=== PATIENT | female | born 1950 | race Caucasian/White ===

== ENCOUNTER 2019-05-17 00:56 | Emergency (ER) | payer MEDICARE, SELFPAY ==
[2019-05-17 00:55] VITALS: BP 178/106; PULSE 100; RESP 15; TEMP 36.6; O2SAT 98
[2019-05-17 01:14] LABS: Basophils Percent Auto 0.2 % (0.2-1.2); Eosinophils Absolute Auto 0.1 K/mm3 (0-0.3); Eosinophils Percent Auto 0.6 % (0-4.4); Hematocrit 40.2 % (37.0-47.0); Hemoglobin 13.3 g/dL (12.0-15.0); Immature Granulocyte Absolute 0.03 K/mm3 (0.00-0.031); Immature Granulocyte Percent A 0.4 % (0-0.5); Lymphocytes Absolute Auto 2.35 K/mm3 (0.9-3.2); Lymphocytes Percent Auto 27.8 % (18.3-44.2); Mean Corpuscular HGB Conc 33.1 g/dl (32-36); Mean Corpuscular Hemoglobin 29.4 pg (26-34); Mean Corpuscular Volume 88.9 fl (80-100); Mean Platelet Volume 9.7 fl (7.4-10.4); Monocytes Absolute Auto 0.5 K/mm3 (0.1-0.6); Monocytes Percent Auto 5.5 % (2.6-8.5); Neutrophils Absolute Auto 5.5 K/mm3 (1.3-6.7); Neutrophils Percent Auto 65.5 % (45.5-73.1); Platelet Count Result 320 k/mm3 (150-375); Red Blood Count 4.52 M/mm3 (4.2-5.4); Red Cell Distribution Width 13.6 % (11.5-14.5); White Blood Count 8.4 K/mm3 (4.5-10.0)
--- NOTE | 2019-05-17 01:17 | ED.EPISTAXIS ---
HPI - Epistaxis General Chief complaint: Epistaxis Stated complaint: NOSEBLEED Time Seen by Provider: 05/17/19 00:59 Source: patient and RN notes reviewed Mode of arrival: EMS Limitations: no limitations History of Present Illness HPI Narrative: Pt is a 68 y/o female who presents to the ED via EMS with c/o epistaxis starting earlier this evening. She notes that her rt nostril suddenly began bleeding around 17:30 yesterday afternoon. Pt states that the bleeding resolved after approximately 10-15 minutes. She notes that her rt nostril again began bleeding around 23:45 this evening. Pt denies any recent head injuries or trauma. She notes that she isn't currently taking any blood thinners, and states that she has no Hx of previous similar episodes. Pt notes that her symptoms are currently resolved. MD complaint: epistaxis Location: right nostril Onset (ago): hour(s) (1) Duration: now resolved Associated symptoms: other (none) Treatment prior to arrival: nasal clamp Related Data Allergies Allergy/AdvReac Type Severity Reaction Status Date / Time No Known Allergies Allergy Verified 05/17/19 00:59 Review of Systems Review of Systems: All systems reviewed & are unremarkable except as noted in HPI and below ENT: Reports epistaxis Neurologic: Denies other (head injury) [facility] Past Medical History Medical History (Updated 05/17/19 @ 01:41 by Freedom Chance MD) Medical history unknown Surgical History Surgical History (Updated 05/17/19 @ 01:27 by Patel Foley) No significant past surgical history Social History Social History (Updated 05/17/19 @ 01:27 by Patel Foley) Smoking status: Never smoker Exam Const: General: cooperative, healthy appearing, comfortable, no acute distress, well developed, alert and awake; No confusion Orientation/consciousness: oriented to person, oriented to place, oriented to time, patient oriented x3 and No confusion Limitations: no limitations HENMT: Head: normal to inspection, normocephalic and atraumatic General nose exam: Normal septum present (no septal hematoma) and Other nasal findings present (dried blood in rt nostril; no active bleeding currently) Neck: Neck: normal visual inspection Resp: Effort & Inspection: normal respiratory effort, able to speak in complete sentences, no respiratory distress and not tachypneic Auscultation: clear to auscultation bilaterally, no crackles, no rales, no rhonchi and no wheezes Cardio: Rate: regular rate Rhythm: regular rhythm GI: Inspection: normal to inspection GI Palp: No abdominal tenderness, Yes Soft to palpation, No Tenderness to palpation present (GI), No Guarding due to palpation present (GI), No Rigid due to palpation and No Rebound tenderness present Auscultation: normal bowel sounds Skin: General skin exam: normal color, no rashes or lesions noted, elasticity normal and turgor normal Neuro: General: oriented to person, oriented to place, oriented to time, patient oriented x3, tone normal, moves all extremities, Normal light touch and pain sensation, no meningeal signs, no focal motor deficits, CN's II-XI intact bilaterally and No confusion Cranial nerves: Yes Equal, round and reactive pupils present Speech: No Abnormal speech present Sensory Exam: No Sensory deficit (Neuro) Extrem: General: normal to inspection, full ROM and capillary refill normal Psych: Appearance: grossly normal and well kempt Mental Status: mental status grossly normal Speech and movement: Normal speech and movement present Affect: normal affect Attitude: cooperative Thought process: Normal thought process present Thought content: Yes Normal thought content present Insight: Good insight present (Psych) Judgement: Good judgement present (Psych) Course Course Emergency Course: EPISTAXIS RESOLVED. HAS NO COMPLAINTS. Vital Signs Vital signs: Vital Signs Temperature 36.6 C 05/17/19 00:55 Pulse Rate 100 05/17/19 00:55 Respiratory Rate
[2019-05-17 01:24] LABS: Prothrombin Time 12.4 Seconds (11.1-14.7)
[2019-05-17 01:25] LABS: Partial Thromboplastin Time 30.2 SECONDS (22.3-36.8)
--- NOTE | 2019-05-17 01:42 | ED.EPISTAXIS ---
HPI - Epistaxis General Chief complaint: Epistaxis Stated complaint: NOSEBLEED Time Seen by Provider: 05/17/19 00:59 Source: patient and RN notes reviewed Mode of arrival: EMS Limitations: no limitations History of Present Illness complaint: epistaxis Location: right nostril Associated symptoms: other (none) Related Data Allergies Allergy/AdvReac Type Severity Reaction Status Date / Time No Known Allergies Allergy Verified 05/17/19 00:59 [facility] Past Medical History Medical History (Updated 05/17/19 @ 01:41 by Freedom Chance MD) Medical history unknown Surgical History Surgical History (Updated 05/17/19 @ 01:27 by Patel Foley) No significant past surgical history Social History Social History (Updated 05/17/19 @ 01:27 by Patel Foley) Smoking status: Never smoker Course Vital Signs Vital signs: Vital Signs Temperature 36.6 C 05/17/19 00:55 Pulse Rate 100 05/17/19 00:55 Respiratory Rate 15 05/17/19 00:55 Blood Pressure 178/106 H 05/17/19 00:55 Pulse Oximetry 98 05/17/19 00:55 Temperature 36.6 C 05/17/19 00:55 Pulse Rate 100 05/17/19 00:55 Respiratory Rate 15 05/17/19 00:55 Blood Pressure 178/106 H 05/17/19 00:55 Pulse Oximetry 98 05/17/19 00:55 MDM - Epistaxis Lab Data Result diagrams: 05/17/19 01:09 Labs: Lab Results 05/17/19 05/17/19 Range/Units 01:09 01:09 WBC 8.4 (4.5-10.0) K/mm3 RBC 4.52 (4.2-5.4) M/mm3 Hgb 13.3 (12.0-15.0) g/dL Hct 40.2 (37.0-47.0) % MCV 88.9 (80-100) fl MCH 29.4 (26-34) pg MCHC 33.1 (32-36) g/dl RDW 13.6 (11.5-14.5) % Plt Count 320 (150-375) k/mm3 MPV 9.7 (7.4-10.4) fl Immature Gran % (Auto) 0.4 (0-0.5) % Neut % (Auto) 65.5 (45.5-73.1) % Lymph % (Auto) 27.8 (18.3-44.2) % Humphreys % (Auto) 5.5 (2.6-8.5) % Eos % (Auto) 0.6 (0-4.4) % Baso % (Auto) 0.2 (0.2-1.2) % Lymph # (Auto) 2.35 (0.9-3.2) K/mm3 Humphreys # (Auto) 0.5 (0.1-0.6) K/mm3 Eos # (Auto) 0.1 (0-0.3) K/mm3 Baso # (Auto) 0.0 (0.0-0.1) K/mm3 Abs Immat Gran (auto) 0.03 (0.00-0.031) K/mm3 Absolute Neuts (auto) 5.5 (1.3-6.7) K/mm3 Absolute Nucleated RBC 0.0 (0.0-0.012) K/mm3 Nucleated RBC % 0.0 (0.0-0.2) % PT 12.4 (11.1-14.7) Seconds INR 1.0 APTT 30.2 (22.3-36.8) SECONDS Discharge Plan Discharge Clinical Impression: Epistaxis Patient Disposition: Home, Self-Care Condition: Improved Instructions: Antibiotic Form, Nosebleed (ED) Additional Instructions: FOLLOW UP WITH YOUR FAMILY DOCTOR IN 1 DAY. Follow-up/Referrals: Abraham Bowens MD [Physician] - 05/18/19 UNKNOWN,DOCTOR [Primary Care Provider] - Time of Disposition: 01:41
[2019-05-17] MEDS: OXYMETAZOLINE HCL 0.05% NAS 15 ML BTL (*BKC) 1 SPRAY NASAL (01:58)
[2019-05-17 02:17] VITALS: BP 161/88; PULSE 100; RESP 15; TEMP 36.7; O2SAT 98
== END 2019-05-17 02:46 | disposition home or self-care (01) ==
PROVIDERS: Emergency Provider Emergency Medicine
DX: R04.0 Epistaxis (principal)
CPT/HCPCS: 30901; 36415; 85025; 85610; 85730; 99283; A9270

== ENCOUNTER 2019-05-17 09:07 | Emergency (ER) | payer MEDICARE, SELFPAY ==
[2019-05-17 09:08] VITALS: BP 162/91; PULSE 115; RESP 20; TEMP 36.9; O2SAT 100
--- NOTE | 2019-05-17 09:24 | ED.EPISTAXIS ---
HPI - Epistaxis General Chief complaint: Epistaxis Stated complaint: NOSEBLEED Time Seen by Provider: 05/17/19 09:10 Source: patient and RN notes reviewed Mode of arrival: EMS Limitations: no limitations History of Present Illness HPI Narrative: A 68 y/o female presents to the ED via EMS with epistaxis since 1729 last night. She states that she was seen in the ER last night and had a rhinorocket placed in her rt nare around 3 AM. She reports that she went home and slept on the recliner, but around 6 AM this morning she woke up with epistaxis to her lt nare. She also reports that the blood started coming from her eyes. She denies any fevers, chills, CP, SOB, N/V/D, ABD pain, or dizziness. MD complaint: epistaxis Location: left nostril Onset (ago): hour(s) (15.5) Duration: constant Associated symptoms: other (blood coming out of her eyes) Treatment prior to arrival: other (rhinorocket) Related Data Allergies Allergy/AdvReac Type Severity Reaction Status Date / Time No Known Allergies Allergy Verified 05/17/19 00:59 Review of Systems Review of Systems: All systems reviewed & are unremarkable except as noted in HPI and below Constitutional: Constitutional: Denies chills and Denies fever(s) Eyes: Eyes: Reports other (blood coming out of her eyes) ENT: Reports epistaxis (rt) Cardiovascular: Cardiovascular: Denies chest pain Respiratory: Respiratory: Denies dyspnea Gastrointestinal: Gastrointestinal: Denies abdominal pain, Denies diarrhea, Denies nausea and Denies vomiting Neurologic: Denies dizziness PMF Past Medical History Medical History Medical history unknown Surgical History Surgical History No significant past surgical history Social History Social History Smoking status: Never smoker Exam Const: General: no acute distress Orientation/consciousness: patient oriented x3 HENMT: Other: Active bleeding through the left nare. Right nare has rapid Rhino Eyes: Other: Bleeding noted in the right eye Neck: Neck: normal visual inspection Chest: Chest palpation & inspection: normal inspection of the chest Resp: Effort & Inspection: normal respiratory effort Cardio: Rate: regular rate Skin: General skin exam: normal color Neuro: General: patient oriented x3 and moves all extremities Extrem: General: normal to inspection Course Course Emergency Course: Inform patient that we would be transferring her to [facility] for ENT consult as we do not have here at this hospital at this time. Patient agreed for transfer. I discussed with ENT surgeon Dr. Booker and ERP dr. Medley agreed in transfer Consultations Consultation #1: Discussed case with Dr. Chisholm (ENT at [facility]). Accepts the pt. Date: 05/17/19 Time: 09:38 Consultation #2: Discussed case with Dr. Medley (ED at [facility]). Accepts the pt. Date: 05/17/19 Time: 09:40 Vital Signs Vital signs: Vital Signs Temperature 36.9 C 05/17/19 09:08 Pulse Rate 115 H 05/17/19 09:08 Respiratory Rate 05/17/19 09:08 Blood Pressure 162/91 H 05/17/19 09:08 Pulse Oximetry 100 05/17/19 09:08 Temperature 36.9 C 05/17/19 09:08 Pulse Rate 112 H 05/17/19 09:56 Respiratory Rate 05/17/19 09:56 Blood Pressure 149/77 H 05/17/19 09:56 Pulse Oximetry 100 05/17/19 09:56 Transfer Transfered to: [facility] Hospital Transportation: ALS Accepting physician: Dr. Medley and ENT Dr. Chisholm Discharge Plan Discharge Clinical Impression: Epistaxis Patient Disposition: Acute Care Hospital Condition: Stable Instructions: Nosebleed (ED) Interventions: Discharge Disposition Last Done: 05/17/19 09:56 Follow-up/Referrals: UNKNOWN,DOCTOR [Primary Care Provider] - Time of Disposition: 10:12
[2019-05-17 09:52] VITALS: BP 149/77; PULSE 108; RESP 20; O2SAT 100
[2019-05-17 09:56] VITALS: BP 149/77; PULSE 112; RESP 20; O2SAT 100
--- NOTE | 2019-05-17 10:26 | PC.NURSE ---
To [facility] via [facility]. Condition stable.
== END 2019-05-17 10:34 | disposition short-term general hospital (02) ==
PROVIDERS: Emergency Provider Family Medicine
DX: R04.0 Epistaxis (principal)
CPT/HCPCS: 30901; 36415; 85025; 85610; 85730; 99283; 99285; A9270

== ENCOUNTER 2020-02-20 08:07 | Outpatient (NON) | payer MEDICARE, SELFPAY ==
[2020-02-23 17:04] LABS: SARS-CoV-2 RNA PCR Negative
== END 2020-02-20 08:08 ==
PROVIDERS: PCP Internal Medicine; Visit Provider Internal Medicine
DX: Z20.828 Contact with and (suspected) exposure to other viral communicable diseases (principal)
CPT/HCPCS: 87635; C9803; U0003

== ENCOUNTER → 2020-11-01 01:13 | Outpatient (CLI) | payer MEDICARE, SELFPAY ==
[2020-11-02 02:25] LABS: SARS-CoV-2 RNA PCR Negative
== END ==
PROVIDERS: PCP Internal Medicine; Visit Provider Internal Medicine
DX: Z20.822 Contact with and (suspected) exposure to COVID-19 (principal)
CPT/HCPCS: C9803; U0003; U0005

== ENCOUNTER 2022-02-12 12:38 | Outpatient (CLI) | payer MEDICARE, SELFPAY ==
[2022-02-12 13:43] LABS: Anion Gap 8 mmol/L (8-16); Blood Urea Nitrogen 12 mg/dL (7-17); Carbon Dioxide 26 mmol/L (22-30); Chloride 105 mmol/L (98-107); Cholesterol 279 mg/dL (0-200); Estimated Glomerular Filt Rate > 60; Glucose 96 mg/dL (65-110); HDL Direct 40 mg/dL; Sodium 139 mmol/L (137-145); Triglycerides 265 mg/dL (<150)
[2022-02-12 13:54] LABS: LDL Cholesterol Direct 159 mg/dL
== END 2022-02-12 12:39 | disposition home or self-care (01) ==
PROVIDERS: PCP Internal Medicine; Visit Provider Internal Medicine
DX: I10 Essential (primary) hypertension (principal); Z13.220 Encounter for screening for lipoid disorders
CPT/HCPCS: 36415; 80048; 80061

== ENCOUNTER 2022-03-11 13:30 | Outpatient (CLI) | payer MEDICARE, SELFPAY ==
--- NOTE | ~2022-03-11 | XR_ITS ---
EXAMINATION: XR chest 2V Exam Date/Time: 03/11/2022 13:40 TIME STUDY TECHNICIAN HISTORY: R05.9 - Cough, COVID 12/18 AND 02/23/22 Comparison: None available. RESULT: Lines, tubes, and devices: None. Lungs and pleura: Bibasilar scar. Mild diffuse reticulonodular opacities. Cardiomediastinal silhouette: Stable. Other: No acute osseous or upper abdominal finding. IMPRESSION: Pulmonary opacities may represent senescent change and/or bronchiolitis, as can be seen with atypical infection, asthma, aspiration, and small airways disease. Reviewed, dictated and finalized at location K. STUDY TECHNICIAN IMPRESSION: Pulmonary opacities may represent senescent change and/or bronchiolitis, as can be seen with atypical infection, asthma, aspiration, and small airways disease .
== END 2022-03-11 13:31 | disposition home or self-care (01) ==
PROVIDERS: PCP Internal Medicine; Visit Provider Nurse Practitioner
DX: R05.9 Cough, unspecified (principal); R91.8 Other nonspecific abnormal finding of lung field
CPT/HCPCS: 71046

== ENCOUNTER 2022-09-09 15:25 | Outpatient (CLI) | payer MEDICARE, SELFPAY ==
--- NOTE | ~2022-09-09 | XR_ITS ---
EXAMINATION: XR abdomen obstructive series DATE: 09/09/2022 INDICATION: Abdomen pain TECHNIQUE: Supine and upright views of the abdomen. FINDINGS: No prior studies for comparison. The visualized lung parenchyma is normal.. There is a nonobstructive bowel gas pattern. Gas and stool are seen throughout the colon to the level of the rectum. There is no free air. IMPRESSION: 1. No acute abdominal abnormality. Reviewed, dictated and finalized at location L.
[2022-09-10 12:31] LABS: Anion Gap 8 mmol/L (8-16); Aspartate Amino Transferase 32 U/L (14-36); Bilirubin,Total 0.5 mg/dL (0.2-1.3); Blood Urea Nitrogen 13 mg/dL (7-17); Calcium 8.7 mg/dL (8.4-10.2); Carbon Dioxide 25 mmol/L (22-30); Chloride 105 mmol/L (98-107); Estimated Glomerular Filt Rate > 60; Glucose 100 mg/dL (65-110); Potassium 3.8 mmol/L (3.4-5.0); Sodium 138 mmol/L (137-145)
[2022-09-10 12:32] LABS: Alanine Aminotransferase 24 U/L (6-35); Albumin Level 4.3 g/dL (3.5-5.1); Alkaline Phosphatase 122 U/L (38-126); Appearance Urine Cloudy (Clear); Color Urine Yellow (Yellow); Glucose Urine UA Negative (Negative); Ketones Urine Negative (Negative); Protein Urine Negative (Negative); Specific Grav Ur 1.018 (1.001-1.035); Total Protein 7.4 g/dL (6.3-8.2)
[2022-09-10 12:33] LABS: Add Urine Microscopic? YES; Bilirubin Urine Negative (Negative); Blood Urine Negative (Negative); Leukocyte Esterase Ur Negative LEU/UL (NEGATIVE); Nitrate Urine Negative (Negative); Urobilinogen Urine 0.2 mg/dL (<2.0)
[2022-09-10 12:34] LABS: Bacteria Urine None seen /hpf; Non Pathogenic Casts 0-2; RBC Urine 0-2 /hpf (0-2); Squamous Epithelial Cell Urine Occasional /hpf (Few); WBC Urine 0-5 /hpf (0-3)
== END 2022-09-09 15:26 | disposition home or self-care (01) ==
LOC: ANHLAB 15:41
PROVIDERS: PCP Family Medicine; Visit Provider Family Medicine
DX: K59.00 Constipation, unspecified (principal); M54.50 Low back pain, unspecified; E66.9 Obesity, unspecified; I10 Essential (primary) hypertension; E78.2 Mixed hyperlipidemia
CPT/HCPCS: 36415; 74019; 80053; 81001

== ENCOUNTER 2022-11-16 16:04 | Outpatient (CLI) | payer MEDICARE, SELFPAY ==
[2022-11-16 13:03] LABS: Hematocrit 47.4 % (37.0-47.0); Hemoglobin 15.1 g/dL (12.0-15.0); Mean Corpuscular HGB Conc 31.9 g/dl (32-36); Mean Corpuscular Hemoglobin 28.5 pg (26-34); Mean Corpuscular Volume 89.6 fl (80-100); Mean Platelet Volume 9.6 fl (7.4-10.4); Platelet Count Result 354 k/mm3 (150-375); Red Blood Count 5.29 M/mm3 (4.2-5.4); Red Cell Distribution Width 14.4 % (11.5-14.5); White Blood Count 8.7 K/mm3 (4.5-10.0)
[2022-11-16 13:10] LABS: Appearance Urine Cloudy (Clear); Bacteria Urine 4+ /hpf; Bilirubin Urine Negative (Negative); Blood Urine Trace (Negative); Color Urine Yellow (Yellow); Glucose Urine UA Negative (Negative); Ketones Urine Negative (Negative); Leukocyte Esterase Ur 2+ LEU/UL (NEGATIVE); Nitrate Urine Positive (Negative); Non Pathogenic Casts 0-2; Protein Urine Trace mg/dL (Negative); RBC Urine 0-2 /hpf (0-2); Specific Grav Ur 1.014 (1.001-1.035); Squamous Epithelial Cell Urine Few /hpf (Few); pH Urine 6.5 (5.0-9.0)
[2022-11-16 13:11] LABS: Alanine Aminotransferase 22 U/L (6-35); Alkaline Phosphatase 135 U/L (38-126); Anion Gap 4 mmol/L (8-16); Aspartate Amino Transferase 25 U/L (14-36); Bilirubin,Total 0.6 mg/dL (0.2-1.3); Blood Urea Nitrogen 11 mg/dL (7-17); Calcium 8.7 mg/dL (8.4-10.2); Carbon Dioxide 26 mmol/L (22-30); Chloride 105 mmol/L (98-107); Estimated Glomerular Filt Rate > 60; Glucose 104 mg/dL (65-110); Sodium 135 mmol/L (137-145)
[2022-11-16 13:17] LABS: Add Urine Microscopic? YES
[2022-11-16 13:28] LABS: Hemoglobin A1C 5.6 % (<5.7)
== END 2022-11-16 16:05 | disposition home or self-care (01) ==
PROVIDERS: PCP Family Medicine; Referring Provider Nurse Practitioner Family; Visit Provider Family Medicine
DX: E66.9 Obesity, unspecified (principal); E78.2 Mixed hyperlipidemia; I10 Essential (primary) hypertension; R73.9 Hyperglycemia, unspecified; K59.00 Constipation, unspecified; M54.50 Low back pain, unspecified; Z00.00 Encounter for general adult medical examination without abnormal findings; N39.0 Urinary tract infection, site not specified
CPT/HCPCS: 36415; 80053; 81001; 83036; 85027; 87077; 87086; 87186

== ENCOUNTER 2022-12-14 14:50 | Outpatient (CLI) | payer MEDICARE, SELFPAY ==
--- NOTE | ~2022-12-14 | MM_ITS ---
EXAMINATION: MM screening pop BI w adwoa HISTORY: Screening TECHNIQUE: Craniocaudal and mediolateral oblique 3-D tomosynthesis images were obtained and synthetic 2-D images were generated. CAD analysis was submitted and interpreted. COMPARISON: No prior mammogram is available for comparison at this institution. BREAST PARENCHYMAL COMPOSITION: Breast composed of scattered areas of fibroglandular density FINDINGS: There are bilateral breast masses in the lower inner quadrant of the right breast in the lo wer inner quadrant of the left breast, middle third. IMPRESSION: 1. Bilateral breast masses. 2. Additional mammographic views and possible breast ultrasound are recommended. BI-RADS Category 0: Incomplete: Needs additional imaging evaluation. Reviewed, dictated and finalized at location A. IMPRESSION: 1. Bilateral breast masses. 2. Additional mammographic views and possible breast ultrasound are recommended . BI-RADS Category 0: Incomplete: Needs additional imaging evaluation.
--- NOTE | ~2022-12-14 | DEXA_ITS ---
Bone Density Report Name: CAROL MUÑIZ Age: 72 Sex: Female Ethnicity: White Date of : 1950 Indication: postmenopausal; screening for osteoporosis; height loss; Referring Provider: AGUSTINA GARZON Study: Bone densitometry was performed. Exam Date: December 14, 2022 Accession number: [id number] Bone Density: Region BMD T-score Z-score Classification AP Spine(L1-L4) 0.989 -0.5 1.8 Normal Femoral Neck (Left) 0.613 -2.1 -0.1 Osteopenia Total Hip (Left) 0.843 -0.8 0.9 Normal Femoral Neck (Right) 0.702 -1.3 0.7 Osteopenia Total Hip (Right) 0.857 -0.7 1.0 Normal Total Hip Mean 0.850 -0.8 1.0 Normal World Health Organization criteria for BMD impression classify patients as: Normal (T-score at or above -1.0), Osteopenia (T-score between -1.0 and -2.5), or Osteoporosis (T-score at or below -2.5). 10-year Fracture Risk(1): Major Osteoporotic Fracture 12% Hip Fracture 2.6% Reported Risk Factors: [place] (), Neck BMD=0.613, BMI=35.3 (1) FRAX(R) Version 3.08. Fracture probability calculated for an untreated patient. Fracture probability may be lower if the patient has received treatment. Clinical Information Provided by Patient: Patient maximum height was 678 Menopause Age: 49 No regular weight bearing exercise Onset of menses at age 11 Number of children 2 Impression: The patient has low bone mass, based on the Left Femoral Neck T-score. The patient has an estimated ten-year risk of hip fracture of 2.6% and an estimated ten-year risk of major fracture of 12%, based on the WHO FRAX algorithm. Discussion: BONE DENSITY IS LOW AT ONE OR MORE SKELETAL SITES. This patient's lowest T-score is low at one or more skeletal sites. It meets the World Health Organization's (WHO) criteria for ?low bone mass? (T-score between -1.0 and -2.5). The patient's 10-year risk of fracture as calculated by FRAX is less than the threshold where pharmacological therapy is recommended by the National Osteoporosis Foundation (NOF). However, all treatment decisions require clinical judgment and consideration of individual patient factors, including patient preferences, comorbidities, previous drug use, risk factors not captured in the FRAX model (e.g., frailty, falls, vitamin D deficiency, increased bone turnover, interval significant decline in bone density) and possible under or overestimation of fracture risk by FRAX. The patient should follow a healthful lifestyle (good nutrition with adequate calcium and vitamin D, and appropriate weight-bearing exercise). Follow-Up: Consider repeating this study in 2 to 3 years to reassess this patient's status, or sooner if there is some new clinical indication. Reported by: KYLER on 12/14/2022 3:17:00 PM.
== END 2022-12-14 14:51 | disposition home or self-care (01) ==
LOC: ANHIMG 14:51
PROVIDERS: PCP Family Medicine; Visit Provider Family Medicine
DX: Z12.31 Encounter for screening mammogram for malignant neoplasm of breast (principal); R22.33 Localized swelling, mass and lump, upper limb, bilateral; M85.89 Other specified disorders of bone density and structure, multiple sites; Z78.0 Asymptomatic menopausal state
CPT/HCPCS: 77063; 77067; 77080

== ENCOUNTER 2023-01-05 10:39 | Outpatient (CLI) | payer MEDICARE, SELFPAY ==
--- NOTE | ~2023-01-05 | MMUS_ITS ---
EXAMINATION: MM diagnostic pop BI w adwoa, US breast BI complete HISTORY: Bilateral breast masses reported on 12/14/2022 screening mammogram TECHNIQUE: Additional 3-D tomosynthesis images of both breasts were performed and synthetic 2-D image s were generated. CAD analysis was submitted and interpreted. High resolution complete bilateral jocelynn st ultrasound examination including all 4 quadrants and subareolar areas was performed. COMPARISON: None FINDINGS: MAMMOGRAPHIC FINDINGS: Right mammogram: Circumscribed 5.4 mm opacity situated anteriorly in the lower inner right breast, benign in appearanc e. No suspicious mammographic mass or architectural distortion, malignant calcification, skin thickening or retraction is noted otherwise. Left mammogram: Circumscribed 7 x 10 mm low density circumscribed opacity in the lower mid left breast. No suspicious mammographic mass or architectural distortion, malignant calcification, skin thickening or retraction is noted otherwise. ULTRASOUND: Right breast: Circumscribed 3.4 x 5.4 mm hypoechoic lesion without internal vascularity or posterior shadowing, lik cliff benign 4:00 near nipple: Parallel circumscribed hypoechoic 3.2 x 5.8 x 7.2 mm lesion without internal vascul arity or posterior shadowing, likely benign. Left breast: 1:00 1 cm from nipple: Parallel circumscribed sonolucency measuring 3.2 x 5.7 x 6.7 mm, with through transmission, consistent with cyst 2:00 1 cm from nipple: Parallel circumscribed sonolucency measuring 2.7 x 5.6 x 4.4 mm, consistent wi th benign cyst 5:00 3 cm from nipple: Approximately 5 x 8.8 mm parallel irregular hypoechoic possible mass versus fi broglandular stroma without internal vascularity or posterior shadowing. 6 month follow-up diagnostic left mammogram and left breast ultrasound examination are recommended. IMPRESSION: 1. Probable benign finding at left breast 5:00 3 cm from nipple 2. 6 month diagnostic left mammogram and left breast ultrasound follow-up are recommended BI-RADS category 3, probably benign findings. Reviewed, dictated and finalized at location A. IMPRESSION: 1. Probable benign finding at left breast 5:00 3 cm from nipple 2. 6 month diagnostic left mammogram and left breast ultrasound follow-up are r ecommended BI-RADS category 3, probably benign findings.
== END 2023-01-05 10:40 | disposition home or self-care (01) ==
PROVIDERS: PCP Family Medicine; Visit Provider Family Medicine
DX: R92.8 Other abnormal and inconclusive findings on diagnostic imaging of breast (principal)
CPT/HCPCS: 76641; 77062; 77066; G0279

== ENCOUNTER 2023-06-17 13:27 | Outpatient (CLI) | payer MEDICARE, SELFPAY ==
[2023-06-17 14:05] LABS: Hematocrit 46.9 % (37.0-47.0); Hemoglobin 14.8 g/dL (12.0-15.0); Mean Corpuscular HGB Conc 31.6 g/dl (32-36); Mean Corpuscular Volume 88.8 fl (80-100); Mean Platelet Volume 9.7 fl (7.4-10.4); Platelet Count Result 388 k/mm3 (150-375); Red Blood Count 5.28 M/mm3 (4.2-5.4); Red Cell Distribution Width 14.1 % (11.5-14.5); White Blood Count 9.9 K/mm3 (4.5-10.0)
[2023-06-17 14:17] LABS: Alanine Aminotransferase 16 U/L (6-35); Albumin Level 4.3 g/dL (3.5-5.1); Alkaline Phosphatase 143 U/L (38-126); Anion Gap 6 mmol/L (8-16); Aspartate Amino Transferase 24 U/L (14-36); Bilirubin,Total 0.7 mg/dL (0.2-1.3); Blood Urea Nitrogen 11 mg/dL (7-17); Calcium 9.1 mg/dL (8.4-10.2); Carbon Dioxide 26 mmol/L (22-30); Chloride 107 mmol/L (98-107); Cholesterol 263 mg/dL (0-200); Estimated Glomerular Filt Rate > 60; Glucose 98 mg/dL (65-110); HDL Direct 38 mg/dL; Potassium 3.9 mmol/L (3.4-5.0); Sodium 139 mmol/L (137-145); Triglycerides 312 mg/dL (<150)
[2023-06-17 14:28] LABS: LDL Cholesterol Direct 168 mg/dL
[2023-06-18 02:05] LABS: Hemoglobin A1C 5.8 % (<5.7)
== END 2023-06-17 13:28 | disposition home or self-care (01) ==
PROVIDERS: PCP Family Medicine; Visit Provider Family Medicine
DX: E66.9 Obesity, unspecified (principal); I10 Essential (primary) hypertension; K59.00 Constipation, unspecified; R32 Unspecified urinary incontinence; R15.9 Full incontinence of feces; E78.2 Mixed hyperlipidemia; Z79.899 Other long term (current) drug therapy
CPT/HCPCS: 36415; 80053; 80061; 83036; 85027

== ENCOUNTER 2023-10-08 15:48 | Outpatient (CLI) | payer MEDICARE, SELFPAY ==
[2023-10-08 18:43] LABS: Add Urine Microscopic? YES; Appearance Urine Cloudy (Clear); Bacteria Urine Rare /hpf; Bilirubin Urine Negative (Negative); Blood Urine Negative (Negative); Color Urine Dark Yellow (Yellow); Glucose Urine UA Negative (Negative); Ketones Urine Trace mg/dL (Negative); Leukocyte Esterase Ur 1+ LEU/UL (Negative); Need Manual Microscopic Reviewed; Nitrate Urine Negative (Negative); Non Pathogenic Casts 0-2; Protein Urine Trace mg/dL (Negative); RBC Urine 0-2 /hpf (0-2); Specific Grav Ur 1.024 (1.001-1.035); Squamous Epithelial Cell Urine Many /hpf (Few); WBC Urine 0-5 /hpf (0-3)
== END 2023-10-08 15:49 | disposition home or self-care (01) ==
LOC: ANHLAB 15:49
PROVIDERS: PCP Family Medicine; Visit Provider Nurse Practitioner Family
DX: R30.0 Dysuria (principal)
CPT/HCPCS: 81001; 87086